=== PATIENT | female | born 1970 | race Hispanic/Latino ===

== ENCOUNTER 2021-05-04 12:44 | Emergency (ER) | payer OTHER ==
[~2021-05-04] VITALS: Ht 157.5 cm; Wt 137.0 kg
[2021-05-04 12:45] VITALS: BP 143/80
[2021-05-04 13:43] LABS: BASOPHILS % (AUTO) 1.5 % (0.0-5.0); HEMATOCRIT 43.2 % (36-48); LYMPHOCYTES % (AUTO) 27.4 % (21.0-51.0); MEAN CORPUSCULAR HEMOGLOBIN 28.5 pg (27.0-33.0); MEAN CORPUSCULAR HGB CONC 32.4 g/dL (32.0-36.0); MEAN CORPUSCULAR VOLUME 87.8 fL (79-99); MONOCYTES % (AUTO) 5.7 % (3.0-13.0); NEUTROPHILS % (AUTO) 60.1 % (40.0-77.0); PLATELET COUNT (AUTO) 336 K/uL (130-400); RED BLOOD CELL COUNT(AUTO) 4.92 MIL/uL (4.00-5.50); RED CELL DISTRIBUTION WIDTH 13.4 % (11.0-15.5); WHITE BLOOD COUNT (AUTO) 8.7 K/uL (4.8-10.8)
[2021-05-04 13:53] LABS: APPEARANCE,URINE CLOUDY (CLEAR); BILIRUBIN,URINE NEGATIVE (NEGATIVE); COLOR,URINE RED (YELLOW); GLUCOSE, URINE (UA) >=1000 mg/dL (NEGATIVE); KETONES,URINE 5 mg/dL (NEGATIVE); LEUKOCYTE ESTERASE ,URINE NEGATIVE (NEGATIVE); NITRATE,URINE NEGATIVE (NEGATIVE); OCCULT BLOOD,URINE LARGE (NEGATIVE); PROTEIN,URINE TRACE mg/dL (NEGATIVE)
[2021-05-04 13:53] LABS: CREATININE 0.7 mg/dL (0.5-1.5); POTASSIUM 3.8 mmol/L (3.5-5.1)
[2021-05-04 13:57] LABS: ALBUMIN 3.1 g/dL (3.5-5.0); BILIRUBIN,TOTAL 0.2 mg/dL (0.2-1.0); TOTAL PROTEIN, SERUM 7.3 g/dL (6.0-8.3)
[2021-05-04 13:58] LABS: HCG,QUAL RESULT NEGATIVE (NEGATIVE)
[2021-05-04 14:16] LABS: BACTERIA,URINE Rare /HPF (None Seen); RBC,URINE TNTC /HPF (0-1); SQUAMOUS EPITHELIAL CELL,UR Rare /HPF (0-2); WBC,URINE 0-1 /HPF (0-1)
[2021-05-04] MEDS ORDERED: DICYCLOMINE 20MG (10MG/ML) AMP IM ONE ×2 (14:30→14:41)
[2021-05-04] MEDS ORDERED: MAG/ALUM/SIMETH 30 ML UDCUP PO ONE (14:30)
[2021-05-04] MEDS ORDERED: LIDOCAINE HCL 2% VISCOUS 15 ML UDCUP ONE (14:41)
[2021-05-04] MEDS ORDERED: MAG/ALUM/SIMETH 30 ML UDCUP ONE (14:41)
[2021-05-04 15:07] VITALS: BP 141/80
[2021-05-04] MEDS ORDERED: FAMO20TA8 PO (15:35)
[2021-05-04] MEDS ORDERED: DICY20TA2 PO (15:35)
== END 2021-05-04 15:55 | disposition home or self-care (01) ==
LOC: EDH 12:44
DX: R10.13 Epigastric pain (principal); E10.9 Type 1 diabetes mellitus without complications
CPT/HCPCS: 36415; 80053; 81001; 81025; 83690; 85025; 96372; 99283; J0500

== ENCOUNTER 2023-02-17 21:20 | Emergency (ER) | payer BC ==
[~2023-02-17] VITALS: Ht 157.5 cm; Wt 137.9 kg
[~2023-02-17 21:20] MED LIST: DICY20TA2 PO; FAMO20TA8 PO
[2023-02-17 21:48] VITALS: BP 140/87
[2023-02-17] MEDS ORDERED: PANTOPRAZOLE 40 MG/VIAL IVP ONE (22:30)
[2023-02-17] MEDS ORDERED: 0.9%NACL 1000ML 1,000 ML IV ONE (22:30)
[2023-02-17] MEDS ORDERED: ONDANSETRON 4MG INJ IVP ONE (22:30)
[2023-02-17] MEDS ORDERED: ACETAMINOPHEN 325 MG TAB PO ONE (22:30)
[2023-02-17] MEDS ORDERED: KETOROLAC 15MG/ML VIAL (15MG/ML) IV ONE (22:30)
[2023-02-17 22:54] LABS: BASOPHILS % (AUTO) 1.4 % (0.0-5.0); EOSINOPHILS % (AUTO) 11.8 % (0.0-8.0); HEMATOCRIT 43.1 % (36-48); LYMPHOCYTES % (AUTO) 27.9 % (21.0-51.0); MEAN CORPUSCULAR HEMOGLOBIN 27.3 pg (27.0-33.0); MEAN CORPUSCULAR HGB CONC 31.8 g/dL (32.0-36.0); MONOCYTES % (AUTO) 6.5 % (3.0-13.0); NEUTROPHILS % (AUTO) 52.1 % (40.0-77.0); PLATELET COUNT (AUTO) 374 K/uL (130-400); RED BLOOD CELL COUNT(AUTO) 5.01 MIL/uL (4.00-5.50); RED CELL DISTRIBUTION WIDTH 13.2 % (11.0-15.5); WHITE BLOOD COUNT (AUTO) 9.4 K/uL (4.8-10.8)
[2023-02-17 23:55] LABS: HCG,QUALITATIVE URINE NEGATIVE (NEGATIVE)
[2023-02-17 23:56] LABS: APPEARANCE,URINE CLEAR (CLEAR); BILIRUBIN,URINE NEGATIVE (NEGATIVE); COLOR,URINE LIGHT-YELLOW (YELLOW); GLUCOSE, URINE (UA) >=1000 mg/dL (NEGATIVE); KETONES,URINE NEGATIVE (NEGATIVE); LEUKOCYTE ESTERASE ,URINE NEGATIVE Leu/uL (NEGATIVE); NITRATE,URINE NEGATIVE (NEGATIVE); OCCULT BLOOD,URINE NEGATIVE (NEGATIVE); PH,URINE 5.5 (5.0-8.0); PROTEIN,URINE 10 mg/dL (NEGATIVE); UROBILINOGEN,URINE 0.2 mg/dL (0.2-1.0)
[2023-02-17 23:58] LABS: ALANINE AMINOTRANSFERASE 39 U/L (12-78); ALBUMIN 3.3 g/dL (3.5-5.0); ASPARTATE AMINOTRANSFERASE 49 U/L (10-37); CARBON DIOXIDE 23 mmol/L (21-32); CHLORIDE 99 mmol/L (101-111); CREATININE 0.5 mg/dL (0.5-1.5); GLOMERULAR FILTR. RATE CALC 114 mL/min (>90); GLUCOSE,RANDOM 339 mg/dL (70-105); POTASSIUM 5.5 mmol/L (3.5-5.1); SODIUM SERUM 132 mmol/L (136-145); UREA NITROGEN, BLOOD 16 mg/dL (7-18)
[2023-02-18] LABS: BACTERIA,URINE RARE /HPF (None Seen); MUCUS,URINE RARE LPF (None Seen); SQUAMOUS EPITHELIAL CELL,UR FEW /HPF (0-2)
[2023-02-18 00:05] LABS: LIPASE < 50 U/L (114-286)
[2023-02-18] MEDS ORDERED: DICY20TA2 PO (00:49)
[2023-02-18] MEDS ORDERED: PANT40TA54 PO (00:49)
[2023-02-18] MEDS ORDERED: ONDA-104 PO (00:49)
[2023-02-18] MEDS ORDERED: ACET-66 PO (00:49)
== END 2023-02-18 00:55 | disposition home or self-care (01) ==
LOC: EDH 21:20
DX: K80.50 Calculus of bile duct without cholangitis or cholecystitis without obstruction (principal); K29.00 Acute gastritis without bleeding; R10.13 Epigastric pain; R11.0 Nausea; E11.9 Type 2 diabetes mellitus without complications
CPT/HCPCS: 99284; 96374; 76705; 71045; 96361; 96375; 84484; 80053; 83690; 85025; 81001; 81025; 36415; 93005; J7030; J2405; C9113; J1885

== ENCOUNTER 2023-04-12 09:26 | Emergency (ER) | payer BC ==
[~2023-04-12] VITALS: Ht 157.5 cm; Wt 135.2 kg
[~2023-04-12 09:26] MED LIST changes: +ACET-66 PO; +ONDA-104 PO; +PANT40TA54 PO
[2023-04-12 10:10] LABS: BASOPHILS % (AUTO) 0.7 % (0.0-5.0); EOSINOPHILS % (AUTO) 7.5 % (0.0-8.0); HEMATOCRIT 39.9 % (36-48); LYMPHOCYTES % (AUTO) 21.2 % (21.0-51.0); MEAN CORPUSCULAR HEMOGLOBIN 27.6 pg (27.0-33.0); MEAN CORPUSCULAR HGB CONC 32.3 g/dL (32.0-36.0); MEAN CORPUSCULAR VOLUME 85.4 fL (79-99); MONOCYTES % (AUTO) 4.8 % (3.0-13.0); NEUTROPHILS % (AUTO) 65.2 % (40.0-77.0); PLATELET COUNT (AUTO) 354 K/uL (130-400); RED BLOOD CELL COUNT(AUTO) 4.67 MIL/uL (4.00-5.50); RED CELL DISTRIBUTION WIDTH 14.2 % (11.0-15.5); WHITE BLOOD COUNT (AUTO) 10.5 K/uL (4.8-10.8)
[2023-04-12 10:28] LABS: CREATININE 0.5 mg/dL (0.5-1.5)
[2023-04-12] MEDS ORDERED: ONDANSETRON 4MG INJ IVP ONE (10:30)
[2023-04-12] MEDS ORDERED: PANTOPRAZOLE 40 MG/VIAL IVP ONE (10:30)
[2023-04-12] MEDS ORDERED: MORPHINE 2 MG SYG IVP ONE (10:30)
[2023-04-12 10:32] LABS: TOTAL PROTEIN, SERUM 7.1 g/dL (6.0-8.3)
[2023-04-12 11:23] LABS: APPEARANCE,URINE TURBID (CLEAR); BILIRUBIN,URINE NEGATIVE (NEGATIVE); COLOR,URINE YELLOW (YELLOW); GLUCOSE, URINE (UA) NEGATIVE (NEGATIVE); KETONES,URINE NEGATIVE (NEGATIVE); LEUKOCYTE ESTERASE ,URINE 25 Leu/uL (NEGATIVE); NITRATE,URINE NEGATIVE (NEGATIVE); PH,URINE 5.5 (5.0-8.0); PROTEIN,URINE 20 mg/dL (NEGATIVE); UROBILINOGEN,URINE 0.2 mg/dL (0.2-1.0)
[2023-04-12 11:25] LABS: HCG,QUALITATIVE URINE NEGATIVE (NEGATIVE)
[2023-04-12 11:35] LABS: BACTERIA,URINE RARE /HPF (None Seen); MUCUS,URINE RARE LPF (None Seen); SQUAMOUS EPITHELIAL CELL,UR MANY /HPF (0-2)
[2023-04-12] MEDS ORDERED: HYOSCYAMINE SULFATE 0.125 MG TAB.SUBL SL ONE (12:00)
[2023-04-12] MEDS ORDERED: SUCRALFATE 1 GM TABLET PO ONE (12:00)
[2023-04-12] MEDS ORDERED: SUCR1TAB28 PO (14:22)
[2023-04-12] MEDS ORDERED: PANT40TA55 PO (14:22)
[2023-04-12] MEDS ORDERED: MAGNESIUM OXIDE 400 MG TABLET PO SCH (14:30)
[2023-04-12 14:39] VITALS: BP 137/67
== END 2023-04-12 14:45 | disposition home or self-care (01) ==
LOC: EDH 09:26
DX: K29.00 Acute gastritis without bleeding (principal); K80.20 Calculus of gallbladder without cholecystitis without obstruction; E11.9 Type 2 diabetes mellitus without complications; E66.9 Obesity, unspecified; Z79.899 Other long term (current) drug therapy; Z68.43 Body mass index [BMI] 50.0-59.9, adult
CPT/HCPCS: 99284; 96374; 76705; 96375; 83735; 84484; 80053; 83690; 85025; 87088; 81001; 81025; 36415; 93005; J2270; J2405; C9113